=== PATIENT | female | born 1995 | race Caucasian/White ===

== ENCOUNTER 2023-04-06 10:12 | Day surgery (SDC) | payer BC ==
[2023-04-06] MEDS ORDERED: BUPIVACAINE 0.25% PF 30 ML VIAL ONE (10:19)
[2023-04-06] MEDS ORDERED: LIDOCAINE MPF 2%-EPI 1:200000 20 ML VIAL ONE (10:19)
[2023-04-06 10:33] LABS: HCG UR QUAL NEGATIVE
[2023-04-06] MEDS ORDERED: LACTATED RINGERS 1,000 ML IV ONE ×3 (10:40→14:33)
--- NOTE | 2023-04-06 12:01 | ANESTHESIA ---
Pre-Anesthesia VS, & Labs - Diagnosis desires sterilization - Procedure bilateral salpingectomy Vital Signs: Temp Pulse Resp BP Pulse Ox O2 Flow Rate 36.6 C 85 14 135/79 H 100 04/06/23 10:31 04/06/23 10:31 04/06/23 10:31 04/06/23 10:31 04/06/23 10:31 Height: 5 ft 5 in Weight (kg): 92.1 kg Body Mass Index: 33.7 BMI Classification: Obese - NPO >8 hours - Is Patient ?: No Home Medications and Allergies Home Medications: Ambulatory Orders No Known Home Medications 03/30/23 No Known Home Medications 03/30/23 Allergies/Adverse Reactions: Allergies Allergy/AdvReac Type Severity Reaction Status Date / Time No Known Drug Allergies Allergy Verified 03/30/23 10:29 Anes History & Medical History - Anesthetic History Anesthesia Complications: reports: No previous complications - Medical History Cardiovascular: reports: None Pulmonary: reports: None Gastrointestinal: reports: None Urinary: reports: None Neuro: reports: None Musculoskeletal: reports: None Endocrine/Autoimmune: reports: None Skin: reports: None Smoking Status: Never smoker Psychosocial: reports: Anxiety, Other (on the spectrum) History of Cancer?: No - Surgical History General: reports: Appendectomy Exam General: Alert, Oriented x3, Cooperative, No acute distress Dental: WNL Mouth Openin Fingerbreadth Neck Mobility: Normal Mallampati classification: II Thyromental Distance: 4-6 cm Mental/Cognitive Status: Alert/Oriented X3, Normal for patient Plan Anesthesia Type: General Consent for Procedure(s) Verified and Reviewed: Yes Code Status: Attempt Resuscitation ASA classification: 1-Healthy patient Is this case an emergency?: No
[2023-04-06] MEDS ORDERED: MIDAZOLAM 2 MG/2 ML VIAL ONE (12:12)
[2023-04-06] MEDS ORDERED: PROPOFOL 200 MG/20 ML VIAL IVP ONE (12:12)
[2023-04-06] MEDS ORDERED: fentaNYL 100 MCG/2 ML VIAL ONE (12:12)
[2023-04-06] MEDS ORDERED: ROCURONIUM 50 MG/5 ML VIAL ONE (12:13)
[2023-04-06] MEDS ORDERED: LIDOCAINE-PF 2% 10 ML AMP SUBQ ONE (12:15)
[2023-04-06] MEDS ORDERED: DEXAMETHASONE 4 MG/ML VIAL ONE (12:58)
[2023-04-06] MEDS ORDERED: ONDANSETRON 4 MG/2 ML VIAL ONE (12:58)
[2023-04-06] MEDS ORDERED: HYDROmorphone 1 MG/ML CARPUJECT ONE (13:01)
[2023-04-06] MEDS ORDERED: LIDOCAINE MPF 2%-EPI 1:200000 20 ML VIAL SUBQ ONE ×2 (13:07)
[2023-04-06] MEDS ORDERED: BUPIVACAINE 0.5% PF 30 ML VIAL SUBQ ONE ×2 (13:07)
[2023-04-06] MEDS ORDERED: KETOROLAC 30 MG/ML VIAL ONE (13:47)
[2023-04-06] MEDS ORDERED: SUGAMMADEX 200 MG/2 ML VIAL IVP ONE (13:49)
[2023-04-06] MEDS ORDERED: fentaNYL 100 MCG/2 ML VIAL IVP PRN (13:51)
[2023-04-06] MEDS ORDERED: MORPHINE 2 MG/ML CARPUJECT IVP PRN (13:51)
[2023-04-06] MEDS ORDERED: HYDROmorphone 0.5 MG/0.5 ML SYRINGE IVP PRN (13:51)
[2023-04-06] MEDS ORDERED: ONDANSETRON 4 MG/2 ML VIAL IVP PRN (13:51)
[2023-04-06] MEDS ORDERED: NALOXONE 0.4 MG/ML VIAL IVP PRN (13:51)
[2023-04-06] MEDS ORDERED: ATROPINE ABBOJECT 1 MG/10 ML SYRINGE IVP PRN (13:51)
[2023-04-06] MEDS ORDERED: LACTATED RINGERS 1,000 ML IV SCH (14:00)
[2023-04-06] MEDS ORDERED: oxyCODONE 5 MG TABLET PO PRN (14:07)
--- NOTE | 2023-04-06 14:15 | OPERATIVE REPORT ---
Operative Report - General Procedure Date: 04/06/23 Pre-Op Diagnosis: Desires permanent sterilization Procedure Performed: Laparoscopic bilateral salpingectomy Post Op Diagnosis: Desires permanent sterilization - Procedure Note Primary Surgeon: Belinda Marks DO Secondary Surgeon: Tram Maldonado NP; assistance required for retraction, safe completion Anesthesia Provider: Bri Liao CRNA Anesthesia Technique: General ET tube Pathology: Bilateral oviducts Estimated Blood Loss (mL): 20 Urine Output (mL): 50 Indications: Desires permanent sterilization Findings: Omental adhesions Some uterine adhesions noted left sidewall and anteriorly Right ovarian cyst Otherwise normal appearing uterus, oviducts, and left ovary Complications: None - Other Other Information/Narrative: Patient taken to OR where GETA obtained without difficulty. Placed in dorsal lithotomy position and prepped and draped in sterile fashion. [place] speculum placed in vagina and anterior lip of cervix grasped with Hyperink manipulator. Uterus sounded 9cm. Speculum and tenaculum removed. Attention then turned to abdomen where 5mm vertical skin incision made in umbilical fold. Veress needle carefully introduced into peritoneal cavity. Intraperitoneal placement confirmed with drop test and drop in intraabdominal pressure with CO2 gas insufflation. Trocar and sleeve advanced without difficulty into abdomen where intraabdominal placement confirmed with laparoscope. Two additional 5mm incisions made in pelvis bilaterally and trocars introduced under direct visualization. 2% lidocaine with epinephrine/0.25% bupivacaine injection prior to skin incisions x3. Aforementioned findings noted. Omental adhesions noted along anterior abdominal wall. This was easily dissected with Ligasure device. Hemostasis. Left fallopian tube grasped and LigaSure device used for transection along mesosalpinx up to uterine cornu. This was repeated on the right fallopian tube. Right tube dissected off right ovarian cyst. Tubes removed through left 5mm port. Decision made not to perform cystectomy as this was not discussed pre-operatively. Hemostasis at all dissection sites. Trocars removed under direct visualization. Pneumoperitoneum released. Umbilical trocar removed. 5mm incisions x3 were closed with 4-0 Monocryl and dermabond. Sponge, lap, needle, and instrument counts were correct x2. Patient taken to PACU in stable condition.
[2023-04-06] MEDS ORDERED: ACETAMINOPHEN 500 MG TABLET PO ONE (15:00)
[2023-04-06] MEDS ORDERED: traMADol 50 MG TABLET PO ONE (15:00)
[2023-04-06] MEDS ORDERED: oxyCODONE 5 MG TABLET ONE (15:07)
--- NOTE | 2023-04-06 15:36 | ANESTHESIA POST OP EVALUATION ---
Anesthesia Post Eval - Post Anesthesia Eval Vitals: Last Vital Signs Temp 36.6 C 04/06/23 15:00 Pulse 88 04/06/23 15:00 Resp 16 04/06/23 15:00 BP 123/56 L 04/06/23 15:00 Pulse Ox 96 04/06/23 15:00 O2 Flow Rate CV Function Including HR & BP: Stable Pain Control: Satisfactory Nausea & Vomiting: Negative Mental Status: Baseline Respiratory Status: Airway Patent Hydration Status: Satisfactory Anesthesia Complications: None
[2023-04-06 15:43] VITALS: BP 122/75
== END 2023-04-06 10:13 | disposition home or self-care (01) ==
LOC: SDS 10:12
PROVIDERS: ATTEND Obstetrics & Gynecology
PROC: 0UT74ZZ Resection of Bilateral Fallopian Tubes, Percutaneous Endoscopic Approach (ICD-10-PCS; principal; 2023-04-06 12:00)
DX: Z30.2 Encounter for sterilization (principal); E66.9 Obesity, unspecified; F41.9 Anxiety disorder, unspecified; Z68.33 Body mass index [BMI] 33.0-33.9, adult
CPT/HCPCS: 58661; 81025; A9270; J1170; J7120